=== PATIENT | female | born 1935 | race Two or more races ===

== ENCOUNTER 2017-10-30 14:24 | Emergency (ER) | payer MEDICAID, OTHER ==
[2017-10-30 15:23] VITALS: BP 152/85
[2017-10-30 15:37] LABS: Basophils # (auto) 0.1 uL; Basophils % (auto) 0.9 % (0.0-2.0); Eosinophils # (auto) 0.1 uL; Hemoglobin 12.8 g/dL (12.2-16.2); Lymphocytes # (auto) 1.3 uL; Lymphocytes % (auto) 23.1 % (10.0-50.0); Mean Corpuscular Hemoglobin 31.2 pg (28.0-32.0); Mean Corpuscular Hgb Conc. 33.8 g/dL (32.0-36.0); Mean Corpuscular Volume 92.3 fL (80.0-100.0); Monocytes # (auto) 0.4 uL; Monocytes % (auto) 7.2 % (0.0-12.0); Neutrophils # (auto) 3.8 uL; Neutrophils % (auto) 66.8 % (37.0-80.0); Nucleated Red Blood Cells % 0.2 %; Platelet Count (auto) 289 10^3/uL (140-450); Red Blood Cells 4.11 10^6/uL (4.0-5.20); White Blood Cell 5.7 10^3/uL (4.4-10.8)
[2017-10-30 16:28] LABS: Alanine Aminotransferase 42 U/L (13-56); Albumin 3.7 g/dL (3.4-5.0); Alkaline Phosphatase 107 U/L (45-117); Anion Gap 5 (5-15); Aspartate Aminotransferase 26 U/L (15-37); BUN/Creatinine Ratio 21.5; Bilirubin, Total 0.3 mg/dL (0.2-1.0); Blood Urea Nitrogen 26 mg/dL (7-18); Calcium 8.5 mg/dL (8.5-10.1); Carbon Dioxide 22 mmol/L (21-32); Chloride 112 mmol/L (98-107); GFR African American 55 mL/min; GFR Non-African American 46 mL/min; Glucose 82 mg/dL (74-106); Magnesium 2.5 mg/dL (1.6-2.6); Potassium 4.4 mmol/L (3.5-5.1); Sodium 139 mmol/L (136-145); Total Protein 8.2 g/dL (6.4-8.2)
[2017-10-30] MEDS ORDERED: predniSONE 20 MG TAB PO ONE (16:30)
== END 2017-10-30 17:49 | disposition home or self-care (01) ==
LOC: ER 14:27
DX: M54.12 Radiculopathy, cervical region (principal); M25.512 Pain in left shoulder; R51 Headache; I10 Essential (primary) hypertension
CPT/HCPCS: 36415; 70450; 72125; 73200; 80053; 83735; 84484; 85025; 93005; 94761; 99285; J7512